=== PATIENT | male | born 1960 | race Caucasian/White ===

== ENCOUNTER 2022-03-27 09:11 | Emergency (ER) | payer BC ==
[~2022-03-27] VITALS: Ht 180.3 cm; Wt 102.7 kg
[2022-03-27] MEDS ORDERED: PRAV40TA2 PO (09:24)
[2022-03-27] MEDS ORDERED: LOSA25TA13 PO (09:24)
[2022-03-27] MEDS ORDERED: TIZA4CAP6 PO (09:24)
[2022-03-27] MEDS ORDERED: DICL75TA PO (11:58)
[2022-03-27] MEDS ORDERED: METH-1165 PO (11:58)
[2022-03-27] MEDS ORDERED: LIDO5DIS41 TD (11:58)
[2022-03-27 13:03] VITALS: BP 182/85
== END 2022-03-27 13:07 | disposition home or self-care (01) ==
LOC: M ED 09:11 → EDBD 09:11 → M ED 13:07
DX: M54.2 Cervicalgia (principal); M54.6 Pain in thoracic spine; I10 Essential (primary) hypertension; K57.92 Diverticulitis of intestine, part unspecified, without perforation or abscess without bleeding; F12.10 Cannabis abuse, uncomplicated; Z79.899 Other long term (current) drug therapy